=== PATIENT | female | born 1965 | race Caucasian/White ===

== ENCOUNTER 2024-07-05 15:03 | Emergency (ER) | payer OTHER, SELFPAY ==
[2024-07-05 15:06] VITALS: BP 198/102
[2024-07-05 15:23] LABS: % Eosinophils 1.5 % (0-6); % Immature Granulocytes 0.3 % (0-0.5); % Lymphocytes 36.7 % (20.5-51.1); % Monocytes 8.9 % (1.7-9.3); % Neutrophils 51.6 % (42.2-75.2); Absolute Basophils 0.1 10^3/uL (0-0.2); Absolute Eosinophils 0.1 10^3/uL (0-0.7); Absolute Lymphocytes 2.2 10^3/uL (1.2-3.4); Absolute Monocytes 0.5 10^3/uL (0.1-0.6); Absolute Neutrophils 3.1 10^3/uL (1.4-6.5); Hematocrit 41.2 % (37.0-47.0); Hemoglobin 13.6 g/dL (12.0-16.0); Mean Corpuscular Hgb 26.5 pg (27.0-31.0); Mean Corpuscular Volume 80.2 fL (81.0-99.0); Nucleated Red Blood Cells % 0 %; Platelet Count 221 10^3/uL (130-400); Red Blood Cell Count 5.14 10^6/uL (4.20-5.40); Red Cell Dist. Width 13.1 % (11.5-14.5); White Blood Cell Count 5.9 10^3/uL (4.8-10.8)
[2024-07-05 15:35] LABS: ALT (SGPT) 18 U/L (0-35); AST (SGOT) 28 U/L (14-36); Albumin 4.7 g/dl (3.5-5.0); Alkaline Phosphatase 61 U/L (38-126); Blood Urea Nitrogen 19 mg/dl (7-17); Calcium 9.7 mg/dl (8.4-10.2); Carbon Dioxide 25 mmol/L (22-30); Chloride 104 mmol/L (98-107); Glucose 100 mg/dl (70-99); Potassium 4.4 mmol/L (3.5-5.1); Sodium 140 mmol/L (135-145); Total Bilirubin 0.5 mg/dl (0.2-1.3); Total Protein 6.8 g/dl (6.3-8.2); eGFR 58.24
[2024-07-05 15:47] LABS: Troponin I < 0.012 ng/ml
--- NOTE | 2024-07-05 16:32 | ED.GENMED ---
History of Present Illness
General
Chief Complaint: Cardiac Symptoms
Source: patient
Exam Limitations: none
Time Seen by Provider: 07/05/24 16:31
Nursing documentation reviewed up to this point in time: agreed with
History of Present Illness
History of Present Illness:
59 yo female w h/o HTN, HLD presents stating for the past 3 days she has had left neck and shoulder pains radiating down left arm. These pains have been constant but waxing and waning. She states the pain last night 'throbbing' and points to left
clavicular area. She states these pains are worse at night. She states Tylenol and ibuprofen give her temporary relief. She states last night when the supraclavicular pain was worse she massage the area and it felt better.
Today while at work her whole left arm was 'hurting,' and the left hand 'went white for a few seconds.' She has also had tingling in her left hand. She states after the episode where her hand went white she checked her [employer] Watch and it said she
was in A-fib. She checked it again a short while later and it was not A-fib but then even a little later it did say A-fib.
She denies chest pain or SOB. She denies feeling lightheaded dizzy.
Past History
Past History
ED Past Medical History: HTN, Hypercholesterolemia and Other (Chronic back pain)
ED Past Surgical History: Tonsilectomy
Social History
Tobacco: Non-smoker
Living: with family
Review of Systems
Review of Systems
Allergies reviewed?: Yes
All Other Systems: ROS reviewed and negative except as documented in HPI and ROS
Constitutional: Denies fever or fatigue
Respiratory: Denies trouble breathing
Cardiac: Reports palpitations (sometimes feels palpitations at night); Denies chest pain, diaphoresis or syncope
ABD/GI: Denies abdominal pain, nausea or vomiting
: Reports no symptoms
Musculoskeletal: Reports neck pain (first right side neck, then 'it moved to my left side neck' also about the left shoulder)
Skin: Reports no symptoms
Neurological: Reports no symptoms
Phy Exam
Physical Exam
Physical Exam:
GENERAL: No acute distress. A&Ox3.
CONSTITUTIONAL: Afebrile.
EYES: clear, conjunctivae normal
ENMT: moist mucus membranes, Pharynx nl
RESPIRATORY: Regular respirations, nonlabored, lungs clear.
CARDIOVASCULAR: Regular rate and rhythm, no murmurs, no rubs. Frequent PACs on monitor. Left hand warm, pink, brisk capillary refill. Normal radial pulse.
GI: Soft, nontender, normal BS
MUSCULOSKELETAL: Tender to palpation left neck ST, ST just above clavicle and upper left back. Full ROM, Moves with ease. Well perfused.
SKIN: Warm, dry, pink
PSYCH: Normal mood and affect. Well kept, interactive and appropriate
NEUROLOGIC: Awake, alert and oriented. No focal neurological deficits
Course
Orders/Labs/Results
Orders:
Orders
07/05/24 15:03
EKG [Electrocardiogram (*1)] Urgent
Reason for Study: Chest Pain
EKG- Treatment ONCE
07/05/24 15:12
CBC/With Diff [Complete Blood Count/With Diff] Urgent
CMP [Comprehensive Metabolic Panel] Urgent
Troponin I Urgent
Abnormal Lab Results
07/05/24
15:12
MCV 80.2 L fL
(81.0-99.0)
MCH 26.5 L pg
(27.0-31.0)
BUN 19 H mg/dl
(7-17)
Creatinine 1.1 H mg/dL
(0.6-1.0)
Glucose 100 H mg/dl
(70-99)
07/05/24 15:12
07/05/24 15:12
Vital Signs
Initial and Last Documented VS:
Initial Vital Signs
Temp Pulse Resp BP Pulse Ox
98.2 F 64 18 198/102 100
07/05/24 15:06 07/05/24 15:06 07/05/24 15:06 07/05/24 15:06 07/05/24 15:06
Last Documented Vital Signs
Temp Pulse Resp BP Pulse Ox
98.2 F 78 19 171/90 100
07/05/24 15:06 07/05/24 17:00 07/05/24 17:00 07/05/24 17:28 07/05/24 15:06
MDM/Problems Addressed
Differential Diagnosis Includes:
musculoskeletal pain, ACS, a fib, PACs, PVCs.
MDM/Problems Addressed:
59 yo female w h/o HTN, HLD presents stating for the past 3 days she has had left neck and shoulder pains radiating down left arm. These pains have been constant but waxing and waning. She states the pain last night 'throbbing' and points to left
clavicular area. She states these pains are worse at night. She states Tylenol and ibuprofen give her temporary relief. She states last night when the supraclavicular pain was worse she massage the area and it felt better.
Today while at work her whole left arm was 'hurting,' and the left hand 'went white for a few seconds.' She has also had tingling in her left hand. She states after the episode where her hand went white she checked her [employer] Watch and it said she
was in A-fib. She checked it again a short while later and it was not A-fib but then even a little later it did say A-fib.
She denies chest pain or SOB. She denies feeling lightheaded dizzy.
EKG NSR
CBC: Normal
CMP: BUN/creat 17/11.1
Troponin normal
4:45 p.m.
Bedside monitor showing frequent PAC's.
EKG #2 confirms PACs
Pt had normal stress echo 12/2013 and normal Echocardiogram 09/2022
5:20 p.m.
Pt is mildly dehydrated which can cause PACs. instructed to hydrate daily
Referred to cardiology if symptoms persist after well hydrated.
Exam of left shoulder/neck area consistent with musculoskeletal pain, muscle tightness.
Chronic conditions affecting care: HTN
*EKG
Interpreted by ED Provider?: Yes
EKG Intrepretation Date: 07/05/24
Interpretation: normal
Heart Rate: 64
Rate: normal
Rhythm: sinus
Bodfish: normal axis
Interval: normal interval
QRS Pattern: normal QRS
Ischemia: no ischemia
*Critical Care Note
Total Time (30-74mins, 75-104mins- exclusive of procedures): Not Applicable
ED Attending Note
-
Portions of this chart may have been created with voice recognition software.� Occasional wrong word or��sound alike� substitutions may have occurred due to the inherent limitations of voice recognition software.
Discharge Plan
Departure
Patient Disposition: Home (Routine Discharge)
Date of Disposition: 07/05/24
Time of Disposition: 17:23
Patient with high blood pressure during this ER visit?: Yes
Condition: Good
Discharge Problem:
Acute cervical myofascial strain, PAC (premature atrial contraction), Mild dehydration
Instructions: Arrhythmias (DC), Dehydration, Adult ED, Muscle Strain ED, BLOOD PRESSURE
Referrals:
Vern Wagner MD [Active] - As needed
NONE,* [Active] -
Activity Restrictions/Additional Instructions:
As we discussed, your neck and shoulder pains seem muscular. Massage would help. Allow warm shower water to run over the areas, range of motion exercises as we discussed.
Ibuprofen and Tylenol as needed since it has helped
Your EKG shows premature atrial contractions, these are not worrisome at this point.
Drink at least 8 eight ounce glasses of water daily for the next 3 days and see if your palpitations (PACs) improve. 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
BP 171/90. Take your BP med when you get home. Keep an eye on your BP, if over the next week it is consistently higher than 130/80, discuss with your doctor.
Interventions
Interventions:
*Risk Screen - Suicide Last Done: 07/05/24 15:06
*General Assessment Last Done: 07/05/24 15:06
*Neglect/Abuse Screening Last Done: 07/05/24 15:06
ED- Fall Risk Assessment Last Done: 07/05/24 17:05
*Nursing Disposition Last Done: 07/05/24 18:06
ED- Pulmonary Assessment Last Done: 07/05/24 17:05
ED- Cardiac Assessment Last Done: 07/05/24 17:05
Discharge Date and Time
Discharge Date/Time: 07/05/24 18:06
Print Language: CROATIAN
[2024-07-05 17:28] VITALS: BP 171/90
== END 2024-07-05 18:06 | disposition home or self-care (01) ==
LOC: EMR 15:03
PROVIDERS: EMERGENCY PHYSICIAN Emergency Medicine; FAMILY PHYSICIAN Family Medicine
DX: S16.1XXA Strain of muscle, fascia and tendon at neck level, initial encounter (principal); M25.512 Pain in left shoulder; X58.XXXA Exposure to other specified factors, initial encounter; R20.2 Paresthesia of skin; R00.2 Palpitations; E86.0 Dehydration; I10 Essential (primary) hypertension; E78.00 Pure hypercholesterolemia, unspecified; M54.9 Dorsalgia, unspecified; G89.29 Other chronic pain
CPT/HCPCS: 99284; 80053; 84484; 85025; 93005

== ENCOUNTER → 2024-07-06 09:41 | Outpatient (REF) | payer OTHER, SELFPAY | LOC: RAD 09:41 | PROVIDERS: ATTENDING PHYSICIAN Family Medicine | DX: R20.2 Paresthesia of skin (principal); M54.2 Cervicalgia | CPT/HCPCS: 72040 ==

== ENCOUNTER → 2024-07-15 06:25 | Day surgery (SDC) | payer OTHER, SELFPAY | LOC: GI 06:25 | PROVIDERS: ATTENDING PHYSICIAN Internal Medicine Gastroenterology | DX: K63.5 Polyp of colon (principal); K57.30 Diverticulosis of large intestine without perforation or abscess without bleeding; Z86.010 Personal history of colon polyps; Z80.0 Family history of malignant neoplasm of digestive organs | CPT/HCPCS: 45385; 88305 ==

== ENCOUNTER → 2024-07-18 07:07 | Outpatient (REF) | payer OTHER, SELFPAY | LOC: WDC 07:07 | PROVIDERS: ATTENDING PHYSICIAN Obstetrics & Gynecology Gynecology; FAMILY PHYSICIAN Family Medicine | DX: Z12.31 Encounter for screening mammogram for malignant neoplasm of breast (principal); R00.2 Palpitations | CPT/HCPCS: 77063; 77067; 93225; 93226 ==

== ENCOUNTER → 2024-08-06 07:06 | Outpatient (REF) | payer OTHER, SELFPAY | LOC: MRI 3T 07:06 | PROVIDERS: ATTENDING PHYSICIAN Family Medicine | DX: M50.30 Other cervical disc degeneration, unspecified cervical region (principal) | CPT/HCPCS: 72141 ==

== ENCOUNTER → 2025-07-22 07:02 | Outpatient (REF) | payer OTHER, SELFPAY | LOC: WDC 07:02 | PROVIDERS: ATTENDING PHYSICIAN Obstetrics & Gynecology Gynecology; FAMILY PHYSICIAN Family Medicine | DX: Z12.31 Encounter for screening mammogram for malignant neoplasm of breast (principal) | CPT/HCPCS: 77063; 77067 ==